=== PATIENT | female | born 1990 | race Caucasian/White ===

== ENCOUNTER → 2017-02-10 | Outpatient (CLI) | payer BC | END | disposition home or self-care (01) | LOC: MAMMO 09:32 | DX: M81.0 Age-related osteoporosis without current pathological fracture (principal) | CPT/HCPCS: 77080 ==

== ENCOUNTER 2017-03-09 14:37 | Inpatient (IN) | payer BC ==
[~2017-03-09] VITALS: Ht 170.2 cm; Wt 104.3 kg
[2017-03-09 16:00] VITALS: BP 125/65
[2017-03-09] MEDS ORDERED: IPRATROPIUM/ALBUTEROL 0.5-3(2.5)MG/3ML NEB INH PRN (16:30)
[2017-03-09] MEDS ORDERED: GUAIFENESIN 200MG/10ML SUGAR FREE UDC PO PRN (16:30)
[2017-03-09] MEDS ORDERED: KETOROLAC 30MG/ML VIAL IV PRN (16:30)
[2017-03-09] MEDS ORDERED: ZOLPIDEM TARTRATE 5MG TABLET PO PRN (16:30)
[2017-03-09] MEDS ORDERED: ACETAMINOPHEN 325MG TABLET PO PRN (16:30)
[2017-03-09] MEDS ORDERED: MAGNESIUM/ALUMINUM HYDROXIDE/SIMETHICONE 30ML UDC PO PRN (16:30)
[2017-03-09] MEDS ORDERED: DIPHENHYDRAMINE 50MG/ML VIAL IV PRN (16:30)
[2017-03-09] MEDS ORDERED: ONDANSETRON HCL 4MG/2ML VIAL IV PRN (16:30)
[2017-03-09] MEDS ORDERED: CLONIDINE 0.1MG TABLET PO PRN (16:30)
[2017-03-09] MEDS ORDERED: DOCUSATE SODIUM 100MG CAPSULE PO PRN (16:30)
[2017-03-09 17:58] VITALS: BP 125/65
[2017-03-09] MEDS ORDERED: PREG75CA PO (18:09)
[2017-03-09] MEDS ORDERED: TRAM50TA3 PO (18:14)
[2017-03-09] MEDS ORDERED: DOCU-272 PO (18:14)
[2017-03-09] MEDS ORDERED: HYDR-3280 MT (18:14)
[2017-03-09] MEDS ORDERED: TRAMADOL 50MG TABLET PO PRN (18:47)
[2017-03-09] MEDS ORDERED: NA PHOS,M-B/NA PHOS,DI-BA ENEMA 118ML PR PRN (19:00)
[2017-03-09] MEDS ORDERED: LORAZEPAM 2MG/ML CPJ IV NR (19:00)
[2017-03-09 19:48] LABS: BASOPHILS % 0.6 % (0.0-2.0); EOSINOPHILS % 1.5 % (0.0-5.0); HEMATOCRIT. 41.2 % (36.0-48.0); HEMOGLOBIN. 13.7 g/dL (12.0-16.0); MEAN CORPUSCULAR HEMOGLOBIN 28.9 pg (28.0-32.0); MEAN CORPUSCULAR VOLUME 86.7 fL (81.0-99.0); MEAN PLATELET VOLUME 8.9 fl (7.4-10.4); MONOCYTES % 5.3 % (2.0-8.0); NEUTROPHILS % 63.6 % (40.0-76.0); PLATELET 284 x1000/uL (130-400); RED BLOOD CELL COUNT 4.75 mill/uL (4.2-5.4); RED CELL DISTRIBUTION WIDTH 13.5 % (11.6-14.6)
[2017-03-09] MEDS: FAMOTIDINE 20MG TABLET PO SCH (19:49)
[2017-03-09 20:00] VITALS: BP 116/70
[2017-03-09 20:01] LABS: CHLORIDE 104 mEq/L (98-107)
[2017-03-09 20:05] LABS: CARBON DIOXIDE 26 mEq/L (21-32)
[2017-03-09 20:17] LABS: HDL CHOLESTEROL 43 mg/dL (40-59); LDL CHOLESTEROL 129 mg/dL (5-100); T4 FREE 1.14 ng/dL (0.76-1.46); TOTAL IRON BINDING CAPACITY 336 ug/dL (250-450)
[2017-03-09 20:28] LABS: FOLIC ACID (FOLATE) SERUM 17.2 ng/mL (>5.38)
[2017-03-10] VITALS: BP 110/68
[2017-03-10 04:00] VITALS: BP 105/65
[2017-03-10 08:00] VITALS: BP 133/70
[2017-03-10] MEDS: PREGABALIN 75MG CAPSULE PO SCH ×2 (08:37→20:44)
[2017-03-10] MEDS: ASPIRIN 325MG EC TABLET PO SCH (08:37)
[2017-03-10] MEDS: FAMOTIDINE 20MG TABLET PO SCH ×2 (08:37→20:44)
[2017-03-10] MEDS: DULOXETINE HCL 30MG DR CAPSULE PO SCH (08:37)
[2017-03-10] MEDS ORDERED: LORAZEPAM 2MG/ML CPJ IV NR (08:45)
[2017-03-10] MEDS ORDERED: DULOXETINE HCL 20MG DR CAPSULE PO SCH (09:00)
[2017-03-10 09:04] LABS: BASOPHILS % 0.4 % (0.0-2.0); EOSINOPHILS % 2.7 % (0.0-5.0); HEMATOCRIT. 39.2 % (36.0-48.0); HEMOGLOBIN. 13.1 g/dL (12.0-16.0); LYMPHOCYTES % 30.5 % (20.0-50.0); MEAN CORPUSCULAR HEMOGLOBIN 28.9 pg (28.0-32.0); MEAN CORPUSCULAR VOLUME 86.4 fL (81.0-99.0); MEAN PLATELET VOLUME 9.2 fl (7.4-10.4); MONOCYTES % 5.3 % (2.0-8.0); NEUTROPHILS % 61.1 % (40.0-76.0); PLATELET 262 x1000/uL (130-400); RED BLOOD CELL COUNT 4.54 mill/uL (4.2-5.4); RED CELL DISTRIBUTION WIDTH 13.3 % (11.6-14.6)
[2017-03-10 12:17] VITALS: BP 132/77
[2017-03-10 16:22] VITALS: BP 130/76
[2017-03-10 20:37] VITALS: BP 119/67
[2017-03-10 22:32] LABS: CLARITY URINE CLEAR (CLEAR); COLOR URINE YELLOW (YELLOW); GLUCOSE URINE NEGATIVE (NEGATIVE); KETONES URINE NEGATIVE (NEGATIVE); LEUKOCYTE ESTERASE URINE NEGATIVE (NEGATIVE); NITRITE URINE NEGATIVE (NEGATIVE); OCCULT BLOOD URINE NEGATIVE (NEGATIVE); PH URINE 5.5 (4.5-8.0); PROTEIN URINE NEGATIVE (NEGATIVE); SPECIFIC GRAVITY URINE 1.017 (1.005-1.030); UROBILINOGEN URINE 0.2 E.U./dL (0.2-1.0)
[2017-03-10 22:44] LABS: *AMPHETAMINES SCREEN URINE NEGATIVE (NEGATIVE); *BARBITURATES SCREEN URINE NEGATIVE (NEGATIVE); *BENZODIAZEPINES SCREEN URINE NEGATIVE (NEGATIVE); *COCAINE SCREEN URINE NEGATIVE (NEGATIVE); METHADONE URINE SCREEN NEGATIVE (NEGATIVE); OPIATES URINE SCREEN NEGATIVE (NEGATIVE); PHENCYCLIDINE URINE SCREEN NEGATIVE (NEGATIVE)
[2017-03-10 22:47] LABS: CANNABINOID URINE SCREEN PRESUMTIVE POSITIVE (NEGATIVE)
[2017-03-11] VITALS: BP 124/68
[2017-03-11 04:00] VITALS: BP 100/55
[2017-03-11 08:00] VITALS: BP 122/70
[2017-03-11] MEDS: FAMOTIDINE 20MG TABLET PO SCH (08:21)
[2017-03-11] MEDS: ASPIRIN 325MG EC TABLET PO SCH (08:21)
[2017-03-11] MEDS: DULOXETINE HCL 30MG DR CAPSULE PO SCH (08:21)
[2017-03-11] MEDS: PREGABALIN 75MG CAPSULE PO SCH (08:21)
[2017-03-11 11:30] VITALS: BP 115/72
[2017-03-11 11:32] VITALS: BP 122/70
== END 2017-03-11 12:00 | disposition home or self-care (01) | DRG 556 ==
LOC: 6WST 14:37
PROVIDERS: ADMIT Internal Medicine; ATTEND Internal Medicine
DX: M79.7 Fibromyalgia (principal); E66.9 Obesity, unspecified; F17.210 Nicotine dependence, cigarettes, uncomplicated; R79.82 Elevated C-reactive protein (CRP); R59.9 Enlarged lymph nodes, unspecified; D72.829 Elevated white blood cell count, unspecified; F99 Mental disorder, not otherwise specified; F12.90 Cannabis use, unspecified, uncomplicated; Z68.36 Body mass index [BMI] 36.0-36.9, adult; Z82.49 Family history of ischemic heart disease and other diseases of the circulatory system; Z83.3 Family history of diabetes mellitus; Z80.9 Family history of malignant neoplasm, unspecified; Z91.048 Other nonmedicinal substance allergy status
CPT/HCPCS: 36415; 70551; 72141; 72146; 72148; 80053; 80061; 80305; 81003; 82607; 82728; 82746; 83036; 83540; 83550; 84439; 84443; 85025; 85651; 86140; 93306; 93970; J1200; J1885; J2060; J2405